=== PATIENT | male | born 2000 | race Caucasian/White ===

== ENCOUNTER 2020-05-15 20:25 | Emergency (ER) | payer BC ==
[~2020-05-15] VITALS: Ht 175.3 cm; Wt 61.4 kg
[~2020-05-15 20:25] MED LIST: LISD50CA3 PO
[2020-05-15] MEDS ORDERED: iohexol 300mg/ml 100ml inj. ONE (21:13)
[2020-05-15 22:36] VITALS: BP 126/89
== END 2020-05-15 22:35 | disposition home or self-care (01) ==
LOC: ER 20:25
DX: Z04.1 Encounter for examination and observation following transport accident (principal); F17.200 Nicotine dependence, unspecified, uncomplicated; Z72.89 Other problems related to lifestyle; Z88.5 Allergy status to narcotic agent; Z79.899 Other long term (current) drug therapy
CPT/HCPCS: 74177; 99285; Q9967

== ENCOUNTER 2020-12-26 05:49 | Emergency (ER) | payer BC ==
[~2020-12-26] VITALS: Ht 180.3 cm; Wt 63.6 kg
[2020-12-26 06:19] VITALS: BP 113/69
[2020-12-26] MEDS ORDERED: cyclobenzaprine 10mg tablet PO ONE (06:45)
[2020-12-26] MEDS ORDERED: ketorolac trometh. 30mg/ml inj. IM ONE (06:45)
[2020-12-26] MEDS ORDERED: NAPR-56 PO (06:47)
[2020-12-26] MEDS ORDERED: CYCL-1 PO (06:47)
== END 2020-12-26 07:25 | disposition home or self-care (01) ==
LOC: ER 05:49
DX: M54.2 Cervicalgia (principal); M54.10 Radiculopathy, site unspecified; Z72.89 Other problems related to lifestyle; Z88.5 Allergy status to narcotic agent; Z79.899 Other long term (current) drug therapy
CPT/HCPCS: 72040; 96372; 99283; J1885